=== PATIENT | male | born 1975 | race African-American/Black ===

== ENCOUNTER 2025-05-18 10:59 | Outpatient (CLI) | payer OTHER ==
[2025-05-18 12:15] LABS: BASO % 0.3 % (0.1-1.2); EOS # 0.12 (0.04-0.54); EOS % 2.1 % (0.7-7.0); LYMPH # 1.51 (1.18-3.74); LYMPH % 26.4 % (19.3-53.1); MEAN PLATELET VOLUME 9.70 fl (9.4-12.4); MONO # 0.51 (0.24-0.82); MONO % 8.9 % (4.7-12.5); NEUT # 3.55 (1.56-6.13); NEUT % 62.1 % (34.0-71.1); RED CELL DISTRIBUTION WIDTH 13.0 % (11.6-14.4)
[2025-05-18 15:00] LABS: ALT/SGPT 29.0 U/L (12-78); AST/SGOT 20.0 U/L (15-37); BILIRUBIN TOTAL 0.66 mg/dL (0.3-1.2); BUN CREA RATIO 14.0 (7.0-25.0); CHOL HDL RATIO 4.1 (0-5.0); CREATININE SERUM 1.09 mg/dL (0.70-1.30); GFR 71.9; GLOBULINA 3.9 G/DL (2.4-3.5); GLUCOSE FASTING 149.0 mg/dL (65-100); HDL 41.0 mg/dl (40-60); LDL 103.0 mg/dl (0-130); OSMOLALITY SERUM 285.0 MOSM/KG (275-295); TSH 0.991 uIU/mL (0.358-3.74); VLDL 23.0 (0-39)
[2025-05-20 08:59] LABS: PROSTATIC SPECIFIC ANTIGEN 0.522 NG/ML (0.010-4.00)
[2025-05-21 10:10] LABS: PROLACTIN 10.7 ng/mL (3.9-22.7)
[2025-05-21 14:11] LABS: ESTRADIOL SERUM 34.9 pg/mL (7.6-42.6)
== END 2025-05-18 11:04 | disposition home or self-care (01) ==
LOC: LAB 10:59
PROVIDERS: ATTEND Urology
DX: D64.9 Anemia, unspecified (principal); R10.9 Unspecified abdominal pain; E11.9 Type 2 diabetes mellitus without complications; Z79.01 Long term (current) use of anticoagulants; N39.0 Urinary tract infection, site not specified; R82.71 Bacteriuria; R97.20 Elevated prostate specific antigen [PSA]; E29.1 Testicular hypofunction; E78.00 Pure hypercholesterolemia, unspecified; Z12.11 Encounter for screening for malignant neoplasm of colon; R86.1 Abnormal level of hormones in specimens from male genital organs

== ENCOUNTER 2025-06-01 09:54 | Outpatient (CLI) | payer OTHER | END 2025-06-01 10:00 | disposition home or self-care (01) | LOC: LAB 09:54 | PROVIDERS: ATTEND Internal Medicine Endocrinology, Diabetes & Metabolism | DX: E03.8 Other specified hypothyroidism (principal); E78.2 Mixed hyperlipidemia; E11.65 Type 2 diabetes mellitus with hyperglycemia; D64.89 Other specified anemias; R94.5 Abnormal results of liver function studies ==